=== PATIENT | male | born 1955 | race Caucasian/White ===

== ENCOUNTER 2019-03-30 11:15 | Inpatient (IN) | payer BC ==
[2019-03-21 09:56] LABS: BASOPHILS % (AUTO) 0.3 % (0-1); EOSINOPHILS # (AUTO) 0.1 X10'3 (0-0.9); EOSINOPHILS % (AUTO) 1.3 % (0-6); LYMPHOCYTES # (AUTO) 1.7 X10'3 (1.1-4.8); LYMPHOCYTES % (AUTO) 25.8 % (21-51); MEAN CORPUSCULAR HEMOGLOBIN 33.6 PG (27.0-31.0); MEAN CORPUSCULAR HGB CONC 34.1 g/dL (33.0-36.5); MEAN CORPUSCULAR VOLUME 98.5 FL (78-98); MEAN PLATELET VOLUME 8.7 FL (7.4-10.4); MONOCYTES # (AUTO) 0.7 X10'3 (0-0.9); MONOCYTES % (AUTO) 11.1 % (2-12); NEUTROPHILS # (AUTO) 4.2 X10'3 (1.8-7.7); NEUTROPHILS % (AUTO) 61.5 % (42-75); PRE OP HEMATOCRIT 45.8 % (42.0-52.0); PRE OP HEMOGLOBIN 15.6 g/dL (14.0-17.9); PRE OP PLATELET COUNT 277 X10'3 (140-440); RED BLOOD COUNT 4.65 X10'6 (4.70-6.10); RED CELL DISTRIBUTION WIDTH 13.3 % (11.5-14.5)
[2019-03-21 10:09] LABS: PRE OP PROTIME 10.2 SECONDS (9.0-12.0)
[2019-03-21 10:17] LABS: ALBUMIN/GLOBULIN RATIO 1.2 (1.1-1.5); ALKALINE PHOSPHATASE 66 IU/L (46-116); BLOOD UREA NITROGEN 17 MG/DL (7-18); BUN/CREATININE RATIO 14.4 (5.4-32.0); CALCIUM 9.4 MG/DL (8.5-10.1); CHLORIDE 107 MMOL/L (99-107); CREATININE 1.18 MG/DL (0.60-1.10); PRE OP ALT 64 U/L (30-65); PRE OP ANION GAP 9 (8-16); PRE OP AST 23 U/L (10-37); PRE OP BILIRUB, TOTAL 0.8 MG/DL (0.0-1.0); PRE OP GLUCOSE 98 MG/DL (70-104); PRE OP POTASSIUM 3.8 MMOL/L (3.4-5.1); PRE OP SODIUM 141 MMOL/L (135-145); TOTAL CARBON DIOXIDE 25.3 MMOL/L (24-32); TOTAL PROTEIN 7.3 G/DL (6.4-8.2); eGFR 63 ML/MIN
[2019-03-30] VITALS (13 sets, daily range): BP systolic 107–137; BP diastolic 70–93
[~2019-03-30] VITALS: Ht 182.9 cm; Wt 90.0 kg
[~2019-03-30 11:15] MED LIST: DICL-212 PO; ESOM20CA PO; MELA10CA2 PO; TRAM50TA2 PO; ZOLP10TA PO; ceFAZolin 2gm in dextrose, iso 50 ML IV ONE; famotidine 20mg tablet PO ONE; vancomycin inj 1,500 MG in normal saline 300ml IV soln IV ONE
[2019-03-30] MEDS: ringers solution, lacted 1,000 ML IV SCH ×2 (12:11→17:57)
[2019-03-30] MEDS ORDERED: BUPIVAcaine/PF 2.5 mg/ml (0.25%) 30ml vial ONE (12:36)
[2019-03-30] MEDS ORDERED: ceFAZolin 1000mg inj ONE (12:36)
[2019-03-30] MEDS ORDERED: sevoflurane 250ml liquid IH ONE (12:49)
[2019-03-30] MEDS ORDERED: acetaminophen 1000 MG/100ml vial IV ONE (12:49)
[2019-03-30] MEDS ORDERED: midazolam 2 mg/2 ml injection ONE (12:58)
[2019-03-30] MEDS ORDERED: fentaNYL /PF 50mcg/ml 5ml ampule ONE (12:58)
[2019-03-30] MEDS ORDERED: ringers solution, lacted 1,000 ML IV SCH (14:27)
[2019-03-30] MEDS ORDERED: rocuronium 10mg/ml inj IV ONE (14:30)
[2019-03-30] MEDS ORDERED: ondansetron/PF 4mg/2ml inj IV PRN ×2 (14:30→16:00)
[2019-03-30] MEDS ORDERED: propofol inj 20 ML IV ONE (14:30)
[2019-03-30] MEDS ORDERED: proCHLORperazine 10 MG/2 ml inj IV PRN (14:30)
[2019-03-30] MEDS ORDERED: morphine 2 MG/ML inj. syringe IV PRN (14:30)
[2019-03-30] MEDS ORDERED: dexamethasone sod phosphate 4mg/ml inj. ONE (14:30)
[2019-03-30] MEDS ORDERED: morphine 4 MG/ML inj SYRINge IV PRN (14:30)
[2019-03-30] MEDS ORDERED: meperidine/PF 25mg/ml syringe IV PRN ×3 (14:30)
[2019-03-30] MEDS ORDERED: fentaNYL/PF 50MCG/1 ML 2ML syringe ONE (14:43)
--- NOTE | 2019-03-30 15:53 | NUR ---
Received from OR via ORTHO BED WITH TXRAMU , accompanied by Anesthesiologist BERLIN and report given by Anesthesiolgist. PATIENT WITH 20G PIV IN LEFT UE RUNNING LR AT 100.L RIGHT SHOULDER SLING ON WITH CDI ANTERIOR SHOULDER DRESSING. + RADIAL PULSE PRESENT. ANGELESS AND BLAYNE BRADLEY UPON ARRIVAL. Addendum: 03/30/19 at 1604 by Bob Beck RN, RN Amended: Links added.
[2019-03-30] MEDS ORDERED: acetaminophen 325mg tablet PO PRN (16:00)
[2019-03-30] MEDS ORDERED: magnesium hydroxide 30ml (MOM) UD suspension PO PRN (16:00)
[2019-03-30] MEDS ORDERED: HYDROcodone/acetaminophen 10/325mg tab PO PRN (16:00)
[2019-03-30] MEDS ORDERED: diphenhydrAMINE 25mg capsule PO PRN ×2 (16:00)
[2019-03-30] MEDS ORDERED: bisacodyl 10mg suppository rectal RC PRN (16:00)
--- NOTE | 2019-03-30 16:53 | NUR ---
PATIENT CRITERIA FOR DC TO FLOOR HAS BEEN ACHIEVED. PATIENT VSS. PATIENT SET UP IN ROOM 4015 B - ONE BAG OF BELONGINGS PLACED AT BEDSIDE. GLASSES ON. CALEB LEES AWARE PATIENT HAS ARRIVED. BED LOW AND CALL LIGHT AVAILABLE. AT BEDSIDE WELL. Addendum: 03/30/19 at 1706 by Bob Beck RN, RN Amended: Links added.
[2019-03-30] MEDS: potassium Cl 20mEq in NS 1,000 ML IV SCH (17:52)
[2019-03-30] MEDS: ceFAZolin 1GM/D5W- ADD-VANTAGE 50 ML IV SCH ×2 (17:54→23:52)
--- NOTE | 2019-03-30 18:35 | NUR ---
Patient in room ORTHO 4015. I have received report from CALEB Bruno and had the opportunity to ask questions and assume patient care.
--- NOTE | 2019-03-30 18:48 | NUR ---
Problems reprioritized. Patient report given, questions answered & plan of care reviewed with Dian ELLIS.
[2019-03-30] MEDS ORDERED: vancomycin/NS 1 GM ADD-VANTAGE 250 ML IV SCH (20:00)
[2019-03-30] MEDS: HYDROmorphone 1 mg/ml syringe IV PRN (20:22)
[2019-03-30] MEDS ORDERED: sennosides 8.6mg tablet PO SCH (21:00)
[2019-03-30] MEDS: HYDROcodone/acetaminophen 10/325mg tab PO PRN (22:25)
[2019-03-31] MEDS: HYDROmorphone 1 mg/ml syringe IV PRN ×3 (00:24→07:39)
[2019-03-31 02:00] VITALS: BP 123/75
[2019-03-31] MEDS: HYDROcodone/acetaminophen 10/325mg tab PO PRN (03:04)
[2019-03-31 03:48] VITALS: BP 135/99
[2019-03-31] MEDS: potassium Cl 20mEq in NS 1,000 ML IV SCH (03:57)
--- NOTE | 2019-03-31 05:00 | NUR ---
Dr. Howard has been notified regarding pt.pain level of 10.He change his pain medication.stop his [place] and gave order for Toradol 30 mg. q 6 h ,4 doses and Oxy IR 10 mg q 4h PRN .We will continue with pt. care.
[2019-03-31 06:10] VITALS: BP 149/101
[2019-03-31] MEDS: ketorolac trometh. 30mg/ml inj. IV PRN ×2 (06:28→13:03)
--- NOTE | 2019-03-31 06:34 | NUR ---
Patient in room ORTHO 4015. I have received report from Dian ELLIS and had the opportunity to ask questions and assume patient care.
[2019-03-31] MEDS: oxyCODONE IR 5mg (immed. release) tablet PO PRN ×3 (06:40→14:22)
--- NOTE | 2019-03-31 06:41 | NUR ---
Problems reprioritized. Patient report given, questions answered & plan of care reviewed with CALEB Buitrago.
[2019-03-31] MEDS ORDERED: pantoprazole 40mg Tablet.DR PO SCH (07:30)
[2019-03-31 10:00] VITALS: BP 126/77
[2019-04-01] MEDS ORDERED: HYDR-3965 PO (06:16)
== END 2019-03-31 16:25 | disposition home or self-care (01) | DRG 502 ==
LOC: PAS 11:15 → ORTHO 4S 17:06 → PAS 17:30 → ORTHO 4S 17:31
PROVIDERS: ADMIT Orthopaedic Surgery; ATTEND Orthopaedic Surgery
PROC: 0PB90ZZ Excision of Right Clavicle, Open Approach (ICD-10-PCS; 2019-03-30)
PROC: 0LM10ZZ Reattachment of Right Shoulder Tendon, Open Approach (ICD-10-PCS; principal; 2019-03-30 12:49)
DX: M75.121 Complete rotator cuff tear or rupture of right shoulder, not specified as traumatic (principal); M19.019 Primary osteoarthritis, unspecified shoulder; I10 Essential (primary) hypertension; K21.9 Gastro-esophageal reflux disease without esophagitis
CPT/HCPCS: Z7506; Z7508; 36415; 80053; 82948; 85025; 85610; 85730; 93005; A4215; A4565; A4618; A6223; A6253; A6449; A7000; C1713; G0378; J0131; J0690; J1100; J1170; J1885; J2175; J2250; J2704; J3010; J3370; J3480; J3490; J7120

== ENCOUNTER 2019-04-01 03:05 | Emergency (ER) | payer BC ==
[~2019-04-01] VITALS: Ht 182.9 cm; Wt 87.7 kg
[~2019-04-01 03:05] MED LIST changes: -DICL-212 PO; -MELA10CA2 PO; -TRAM50TA2 PO; -ZOLP10TA PO; -ceFAZolin 2gm in dextrose, iso 50 ML IV ONE; -famotidine 20mg tablet PO ONE; -vancomycin inj 1,500 MG in normal saline 300ml IV soln IV ONE
[2019-04-01] MEDS ORDERED: morphine 4 MG/ML inj SYRINge IV ONE ×2 (04:20→06:15)
[2019-04-01] MEDS ORDERED: ondansetron/PF 4mg/2ml inj IV ONE (04:20)
[2019-04-01] MEDS ORDERED: ketorolac trometh. 30mg/ml inj. IV ONE (04:20)
[2019-04-01] MEDS ORDERED: normal saline 1000ml 1,000 ML IV ONE (04:20)
[2019-04-01 04:41] LABS: BASOPHILS % (AUTO) 0.2 % (0-1); EOSINOPHILS % (AUTO) 0.3 % (0-6); HEMATOCRIT 43.2 % (42.0-52.0); HEMOGLOBIN 14.7 g/dl (14.0-17.9); LYMPHOCYTES # (AUTO) 1.8 X10'3 (1.1-4.8); LYMPHOCYTES % (AUTO) 15.3 % (21-51); MEAN CORPUSCULAR HEMOGLOBIN 33.7 PG (27.0-31.0); MEAN CORPUSCULAR HGB CONC 33.9 g/dL (33.0-36.5); MEAN CORPUSCULAR VOLUME 99.2 FL (78-98); MEAN PLATELET VOLUME 8.7 FL (7.4-10.4); MONOCYTES # (AUTO) 1.4 X10'3 (0-0.9); NEUTROPHILS # (AUTO) 8.6 X10'3 (1.8-7.7); NEUTROPHILS % (AUTO) 72.2 % (42-75); PLATELET COUNT 219 X10'3 (140-440); RED BLOOD COUNT 4.36 X10'6 (4.70-6.10); WHITE BLOOD COUNT 11.9 X10'3 (4.5-11.0)
[2019-04-01 04:52] LABS: ALANINE AMINOTRANSFERASE 28 U/L (12-78); ALBUMIN 4.3 G/DL (3.4-5.0); ALBUMIN/GLOBULIN RATIO 1.2 (1.1-1.5); ALKALINE PHOSPHATASE 64 IU/L (46-116); ANION GAP 10 (8-16); ASPARTATE AMINO TRANSFERASE 23 U/L (10-37); BILIRUBIN,TOTAL 1.2 MG/DL (0.1-1.0); BLOOD UREA NITROGEN 17 MG/DL (7-18); BUN/CREATININE RATIO 13.1 (5.4-32.0); CALCIUM 9.3 MG/DL (8.5-10.1); CHLORIDE 104 MMOL/L (99-107); GLUCOSE 102 MG/DL (70-104); SODIUM 139 MMOL/L (135-145); TOTAL CARBON DIOXIDE 24.6 MMOL/L (24-32); eGFR 56 ML/MIN
[2019-04-01] MEDS ORDERED: iohexol 300mg/ml 100ml inj. ONE (05:13)
[2019-04-01] MEDS ORDERED: acetaminophen 325mg tablet PO ONE (06:15)
[2019-04-01] MEDS ORDERED: HYDR-3965 PO (06:16)
--- NOTE | 2019-04-01 07:15 | NUR ---
Spoke to Dr. Kelly regarding the Rx for [place] written for the pt by Dr. Cummings prior to signing pt out, as the pt already has an Rx written by his Surgeon for Percocet two days ago. Dr. Kelly states that the pt has been educated on safe medication practices, and is comfortable giving pt this Rx at this time.
[2019-04-01 07:23] VITALS: BP 139/94
== END 2019-04-01 07:29 | disposition home or self-care (01) ==
LOC: ER 03:14
DX: G89.18 Other acute postprocedural pain (principal); M25.511 Pain in right shoulder; Z79.899 Other long term (current) drug therapy; Z98.890 Other specified postprocedural states
CPT/HCPCS: 36415; 71045; 73201; 80053; 84484; 85025; 93005; 96374; 96375; 96376; 99285; J1885; J2270; J2405; J7030; Q9967